=== PATIENT | male | born 1965 | race Caucasian/White ===

== ENCOUNTER 2016-07-31 13:55 | Emergency (ER) | payer MEDICARE, MEDICAID ==
--- NOTE | 2016-08-03 09:05 | ER ---
ADMIT: 07/31/2016 RM/LOC: ER [facility] MR#: [id number] [address] [place] [address] Emergency Room Report SEX: M AGE: 50 : 1965 DATE: 07/31/2016 TIME: 1355 hours. PRIMARY CARE PHYSICIAN: Carroll Fonseca in [place]. Please refer to my T-sheet for complete H and P. Briefly, the patient is a 50-year-old, who comes in with feeling cold. He states that he has multiple medical problems, diabetes, morbid obesity, and has a right foot resection. He has chronic stasis and ulcers of his left lower extremity. He actually was seen by Dr. Mosquera the sales facilitator recently. He has been out here only for [address] Fonseca in [place]. He wanted to be checked because he has been feeling cold, he cannot get warm. PHYSICAL EXAMINATION: VITAL SIGNS: Blood pressure 137/56, pulse 70, respirations 16, temperature 98.6, and sat 97%. GENERAL: In no acute distress. HEENT: Grossly normal. LUNGS: Coarse but distal. HEART: Regular. ABDOMEN: Morbidly obese. 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 His left lower extremity has stasis, it is wrapped, they just replaced it. EMERGENCY DEPARTMENT COURSE: CBC was normal except hemoglobin 12.5. Chemistries normal except CO2 of 20, BUN 75, glucose 149, creatinine 3.7, calcium 8, alkaline phosphatase was 844, AST 57, total bilirubin 3.3, and TSH 1.05, CRP 3.6. I had a long discussion with him. He said his hemoglobin has been lower, it has been in the 6s. At this stage, he does not think he needs to be transfused. I recommend follow up for that. His creatinine, he said ADMIT: 07/31/2016 RM/LOC: [facility] MR#: [id number] [address] [place] [address] Emergency Room Report SEX: M AGE: 50 : 1965 with the last one on his record, which we could not get a copy of was 4.6. He was comfortable going back to the longterm. ASSESSMENT: 1. Renal insufficiency. 2. Increased total bilirubin. 3. Anemia. 4. Chronic leg ulcers. 5. Morbid obesity. PLAN: Continue care. Follow up as outpatient with Dr. Fonseca. Return if worse. Tyrell Arrieta MD/ ishmael JOB #: [id number] CC: Tyrell Arrieta MD, Attending Physician Carroll Fonseca MD, Family Physician
== END 2016-07-31 16:45 | disposition home or self-care (01) ==
LOC: ER 13:55
DX: I83.028 Varicose veins of left lower extremity with ulcer other part of lower leg (principal); N28.9 Disorder of kidney and ureter, unspecified; D64.9 Anemia, unspecified; E66.01 Morbid (severe) obesity due to excess calories; E80.7 Disorder of bilirubin metabolism, unspecified; E11.9 Type 2 diabetes mellitus without complications; I11.0 Hypertensive heart disease with heart failure; I50.9 Heart failure, unspecified; Z89.431 Acquired absence of right foot; Z88.6 Allergy status to analgesic agent; Z91.048 Other nonmedicinal substance allergy status; Z79.4 Long term (current) use of insulin; Z79.899 Other long term (current) drug therapy; Z79.01 Long term (current) use of anticoagulants